=== PATIENT | female | born 1965 | race Caucasian/White ===

== ENCOUNTER 2018-01-29 18:46 | Emergency (ER) | payer BC ==
[2018-01-29 19:00] VITALS: BP 161/95
== END 2018-01-29 20:50 | disposition left against medical advice (07) ==
LOC: ED 18:46
DX: R56.9 Unspecified convulsions (principal); Z53.21 Procedure and treatment not carried out due to patient leaving prior to being seen by health care provider

== ENCOUNTER 2018-12-11 07:12 | Day surgery (SDC) | payer BC ==
[~2018-12-11 07:12] MED LIST: Buffered Lidocaine 1% SYRIN* 1 ML/SYRINGE INTRADERM ONE; Dexamethasone TAB* 4 MG PO ONE; DiMENhydriNATE IV* 50 MG/ML VIAL IV PUSH PRN; Famotidine IV* 10 MG/ML 2 ML (20 mg) IV ONE; HYDROmorphone INJ1* 1 MG/ML SYRINGE IV PRN; Lactated Ringers 1000 ML Bag* 1,000 ML IV SCH; Naloxone* 0.4 MG/ML 1 ML VIAL IV PRN; Ondansetron ODT TAB* 4 MG PO ONE; PROCHLORPERAZINE INJ 5 MG/ML 2 ML VIAL IV PRN; Scopolamine 1.5 mg* PATCH TRANSDERM PRN; fentaNYL* 50 MCG/ML 2 ML VIAL (100 MCG VIAL) IV PRN; oxyCODONE/Acetamin 5/325 MG* TAB PO PRN
[2018-12-11] MEDS ORDERED: Dexamethasone TAB* 4 MG ONE (07:38)
[2018-12-11] MEDS ORDERED: Ondansetron ODT TAB* 4 MG ONE (07:38)
[2018-12-11] MEDS ORDERED: Famotidine IV* 10 MG/ML 2 ML (20 mg) ONE (07:38)
[2018-12-11] MEDS ORDERED: Buffered Lidocaine 1% SYRIN* 1 ML/SYRINGE INTRADERM ONE (07:38)
[2018-12-11] MEDS ORDERED: fentaNYL* 50 MCG/ML 2 ML VIAL (100 MCG VIAL) ONE (07:59)
[2018-12-11] MEDS ORDERED: Midazolam* 1 MG/ML 5 ML VIAL (5 MG) ONE (07:59)
[2018-12-11] MEDS ORDERED: KETAMINE HCL* 50 MG/ML 10 ML VIAL ONE (07:59)
[2018-12-11] MEDS ORDERED: PROCHLORPERAZINE INJ 5 MG/ML 2 ML VIAL ONE (08:55)
[2018-12-11] MEDS ORDERED: Lidocaine 2% PF * 5 ML VIAL ONE (08:55)
[2018-12-11] MEDS ORDERED: Ketorolac INJ* 30 MG/ML 1 ML VIAL ONE (08:55)
[2018-12-11] MEDS ORDERED: Propofol* 10 MG/ML 20 ML BTL ONE (08:55)
[2018-12-11 10:54] VITALS: BP 125/81
--- NOTE | 2018-12-11 14:18 | OP ---
DATE OF OPERATION: 12/11/18 - [facility] DATE OF : 63 SURGEON: Alex Triplett MD. ANESTHESIOLOGIST: Dr. Allen. ANESTHESIA: General endotracheal anesthesia. PRE-OP DIAGNOSES: 1. Irregular vaginal bleeding. 2. Endometrial polyp on ultrasound. POST-OP DIAGNOSES: 1. Irregular vaginal bleeding. 2. Endometrial polyp on ultrasound. OPERATIVE PROCEDURES: Dilation, hysteroscopy, MyoSure polypectomy, curettage. ESTIMATED BLOOD LOSS: Minimal, 20 cc. FINDINGS: Small anteverted uterus, no adnexal mass is palpated. Uterus sounded to 7. The endometrium appeared atrophic except for a polyp that looked to be approximately 1 cm at the fundus directly in the midline. COMPLICATIONS: None. COUNTS: Sponge count correct x2. CONDITION: The patient was brought to recovery room awake and in stable condition. DESCRIPTION OF PROCEDURE: The patient was brought to the operating room. When general anesthesia was found to be adequate, the patient was prepped and draped in the usual sterile fashion in the dorsal lithotomy position. Time-out was performed. Exam under anesthesia was performed. The weighted speculum was placed in the vagina. The anterior lip of the cervix was grasped with a single tooth tenaculum and the cervix was gently and easily dilated with a graduated Castro dilators. The hysteroscope was introduced, polyp was seen at the fundus, the MyoSure LITE was used to remove the polyp in its entirety. The MyoSure was removed. Curettage was performed throughout. The endometrial polyp and endometrial curettings were sent to pathology. The single tooth tenaculum was removed from the anterior lip of the cervix. Excellent hemostasis was noted. All instruments were removed from the vagina and the patient was brought to the recovery room awake and in stable condition. [id number]/[facility] #: [id number] MTDD
[2018-12-14] MEDS ORDERED: Scopolamine PATCH Remove* 1 NOTE MISC PATCH OFF ONE (06:04)
== END 2018-12-11 11:43 | disposition home or self-care (01) ==
LOC: OR 07:12
PROVIDERS: ATTEND Obstetrics & Gynecology
DX: N92.5 Other specified irregular menstruation (principal); N84.0 Polyp of corpus uteri; I10 Essential (primary) hypertension
CPT/HCPCS: 81025; 88305; A9270-GY; J0780; J1885; J2250; J2704; J3010; J8540